=== PATIENT | female | born 1960 | race Caucasian/White ===

== ENCOUNTER 2017-05-27 07:35 | Day surgery (SDC) | payer OTHER ==
[2017-05-27] VITALS (13 sets, daily range): BP systolic 85–136; BP diastolic 45–78; PULSE 52–86; RESP 14–33; Ht 152.4 cm; Wt 93.0 kg
[~2017-05-27] VITALS: Ht 152.4 cm; Wt 93.0 kg
[~2017-05-27 07:35] MED LIST: CEFAZOLIN 2 GM/50 ML (PMX) 50 ML IVPB ONE; SOD CHLORIDE 0.9% 1,000 ML IV ONE
[2017-05-27] MEDS ORDERED: SOD CHLORIDE 0.9% 1,000 ML IV SCH (09:00)
[2017-05-27] MEDS ORDERED: CEFAZOLIN 2 GM/50 ML (PMX) 50 ML IVPB ONE (09:00)
[2017-05-27] MEDS ORDERED: FAMO20TA18 PO (09:25)
[2017-05-27 10:20] LABS: ABNORMAL IP MESSAGE 1; BASOPHILS % 0.6 % (0.0-2.0); EOSINOPHILS # 0.3 10^3/ul (0.0-0.5); HEMATOCRIT 43.2 % (37.0-47.0); HEMOGLOBIN 14.2 g/dl (12.0-16.0); INR 1.03; LYMPHOCYTES # 1.9 10^3/ul (0.8-2.9); LYMPHOCYTES % 29.8 % (15.0-51.0); MEAN CORPUSCULAR HGB CONC 32.9 g/dl (32.0-37.0); MEAN CORPUSCULAR VOLUME 85.2 fl (82.0-101.0); MEAN PLATELET VOLUME 13.6 fl (7.4-10.4); MONOCYTE # 0.4 10^3/ul (0.3-0.9); NEUTROPHILS % 59.3 % (39.0-77.0); PARTIAL THROMBOPLASTIN TIME 31.5 Sec (25.0-35.0); PLATELET COUNT 144 10^3/UL (140-415); PROTIME 13.5 Sec (12.2-14.2); PT RATIO 1.1; RED BLOOD COUNT 5.07 10^6/ul (4.20-5.40); RED CELL DISTRIBUTION WIDTH 14.5 % (11.5-14.5); WHITE BLOOD COUNT 6.5 10^3/ul (4.8-10.8)
[2017-05-27 10:32] LABS: POSITIVE DIFF @See below
[2017-05-27 10:46] LABS: ALBUMIN 4.3 g/dl (3.3-4.9); ALBUMIN/GLOBULIN RATIO 1.22; BILIRUBIN,INDIRECT 0.3 mg/dl (0-1.1); BILIRUBIN,TOTAL 0.3 mg/dl (0.2-1.3); TOTAL PROTEIN 7.8 g/dl (6.1-8.1)
[2017-05-27] MEDS ORDERED: KETOROLAC 30 MG INJ IV PRN ×2 (11:00→13:00)
[2017-05-27] MEDS ORDERED: hydrALAzine 20 MG INJ IV PRN (11:00)
[2017-05-27] MEDS ORDERED: EPHEDrine SULFATE 50 MG/5 ML SYG IV PRN (11:00)
[2017-05-27] MEDS ORDERED: DIPHENHYDRAMINE 50 MG INJ IV PRN (11:00)
[2017-05-27] MEDS ORDERED: LABETALOL HCL 20MG INJ IV PRN (11:00)
[2017-05-27] MEDS ORDERED: ONDANSETRON 4 MG INJ IV PRN ×2 (11:00→13:00)
[2017-05-27] MEDS ORDERED: HYDROmorphONE (0.2 MG/ML) 10ML SYG IV PRN ×3 (11:00)
[2017-05-27] MEDS ORDERED: OXYCODONE/ACETAMINOPHEN (5/325) TAB PO PRN ×2 (11:00)
[2017-05-27] MEDS ORDERED: MEPERIDINE 25 MG INJ IV PRN (11:00)
[2017-05-27] MEDS ORDERED: FENTAnyl 50 MCG/ML VIAL IV PRN ×3 (11:00)
[2017-05-27 11:04] LABS: CALCIUM 9.2 mg/dl (8.4-10.2); CREATININE 0.84 mg/dl (0.44-1.00); POTASSIUM 4.1 mmol/L (3.5-5.1)
[2017-05-27] MEDS ORDERED: PROPOFOL 60 ML ONE (11:07)
[2017-05-27] MEDS ORDERED: LIDOCAINE 2% (SDV) 5 ML INJ ONE (11:07)
[2017-05-27] MEDS ORDERED: FENTAnyl 50 MCG/ML VIAL ONE (11:08)
[2017-05-27] MEDS ORDERED: BUPIVACAINE 0.25% (MPF) 30 ML INJ ONE (11:43)
[2017-05-27] MEDS ORDERED: PROPOFOL 20 ML ONE (11:54)
[2017-05-27] MEDS ORDERED: DEXAMETHASONE 4 MG/ML 1 ML INJ ONE (11:54)
[2017-05-27] MEDS ORDERED: ONDANSETRON 4 MG INJ ONE (11:54)
--- NOTE | 2017-05-27 12:42 | OPR ---
Date/Time of Note Date/Time of Note DATE: 05/27/17 TIME: 12:36 Operative Report Procedure Date: May 27, 2017 Preoperative Diagnosis 1. Atypical ductal hyperplasia of left breast 2. Intraductal papilloma of left breast Postoperative Diagnosis 1. Atypical ductal hyperplasia of left breast 2. Intraductal papilloma of left breast Operation Performed Excisional biopsy of left breast lesion with wire needle localization Surgeon: EVA GREER MD Anesthesia Type: general Anesthesiologist: LAZARO LIEBERMAN Estimated Blood Loss: minimal Transfusion Required: no Specimens Left breast excisional biopsy Grafts/Implants: none Complications: no Pt Condition Post Procedure: stable Disposition: PACU Indications Patient is a 57-year-old female who presents to the office with biopsy-proven atypical ductal hyperplasia of the left breast 3:00 location in association with an intraductal papilloma. Biopsy clip was placed at the time of biopsy. The patient was scheduled for elective definitive excision with wire needle localization given risk of malignant transformation of atypical ductal hyperplasia. All risks and benefits of the procedure including, but not limited to: Wound infection, excessive bleeding, postoperative seroma/hematoma formation, possible need for reexcision and subsequent surgery, etc. were all explained to the patient in full detail. She understood and wished to proceed with the procedure. Informed consent was obtained. Operative\Procedure Findings Wire needle excised in its entirety. Biopsy clip present in specimen. Procedure Description The patient was brought to the operating room and placed supine on the operating table. Bilateral sequential compression devices were placed on both lower extremities. A dose of broad-spectrum intravenous antibiotics was given. After the induction of smooth general anesthesia the patient's left breast and chest wall were prepped and draped in standard surgical fashion. After anesthetizing the skin with 0.25% Marcaine a periareolar incision was made extending from the 9:00 location to the 12:00 location of the left breast using a 15 blade scalpel. Incision was carried down through the skin and dermis using Bovie electrocautery into the breast tissue. Flaps were raised. The wire needle was delivered through the skin into the operative field. Dissection was then carried circumferentially around the wire needle to include it in its entirety. Specimen was then transected at its base. Marking sutures were used to lashon the superior and medial aspects. Specimen was sent for intraoperative mammography which showed the wire needle and biopsy clip to be located within the specimen in their entirety. Specimen was then sent to pathology. Hemostasis was inspected for and noted to be total. Wound cavity was then irrigated with warm irrigation which returned clear. Incision was then closed in layers using interrupted 3-0 Vicryl sutures for the dermal and deep layers. The skin was reapproximated using a running subcuticular 4-0 Monocryl suture. Further local anesthesia was applied around the skin of the incision site. Incision was cleaned and Dermabond was applied as well as a sports bra. The patient was then awoken from anesthesia and transported to the recovery room in stable condition. All counts were correct at the end of the case 2 EVA GREER MD May 27, 2017 12:41
[2017-05-27] MEDS ORDERED: IBUPROFEN 600 MG TAB PO PRN (13:00)
[2017-05-27] MEDS ORDERED: HYDROCODONE/APAP (5/325) TAB PO PRN (13:00)
== END 2017-05-27 15:07 | disposition home or self-care (01) ==
LOC: SDS 07:35 → EDBD 16:30
PROVIDERS: ATTEND Surgery
DX: N60.12 Diffuse cystic mastopathy of left breast (principal); D24.2 Benign neoplasm of left breast; E66.01 Morbid (severe) obesity due to excess calories; Z68.41 Body mass index [BMI] 40.0-44.9, adult
CPT/HCPCS: 19120; 80053; 85025; 85610; 85730; 88307; J1100; J2405; J3010; Z7512; Z7610